=== PATIENT | male | born 1990 | race Caucasian/White ===

== ENCOUNTER 2018-12-03 08:59 | Emergency (ER) | payer OTHER ==
--- NOTE | 2018-12-03 09:36 | ED ---
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 He reports that five days ago, 11/28/18, he has onset of a sensation that he describes as "Feeling my pulse in my throat". Last evening, 12/02/18, he had onset of substernal chest pain. He characterizes pain as a sharpness and a tightness. Pain radiates to throat and is noted to be aggravated by deep breaths. However, he denies SOB. Patient makes note of an episode of dizziness while he was doing squats yesterday, but relates this to not having worked out in a week. He reports no similar prior episodes of present Sx. Patient reports no PMHx and denies FMHx of MIs at his age of 28. PSHx of knee surgery noted. He denies tobacco and substance usage but endorses occasional alcohol usage. On triage, nothing is noted to aggravate/alleviate Sx. Home medications and allergies are reviewed. - History of Current Complaint Chief Complaint: EDChestPainROMI Time Seen by Provider: 12/03/18 09:29 Hx Obtained From: Patient Onset/Duration: Started Days Ago, Still Present Timing: Constant, Lasting Days Chest Pain Location: Discrete at: - sub sternum Chest Pain Radiates: Yes Chest Pain Radiates To:: Other - throat Character: Sharp/Stabbing, Tightness Aggravating Factor(s): Nothing Alleviating Factor(s): Nothing Associated Signs and Symptoms: Positive: Chest Pain, Dizziness. Negative: Shortness of Breath - Allergy/Home Medications Allergies/Adverse Reactions: Allergies Allergy/AdvReac Type Severity Reaction Status Date / Time No Known Allergies Allergy Verified 12/03/18 09:04 Home Medications: Home Medications Loratadine [Claritin] 10 mg PO DAILY PRN 12/03/18 [History Confirmed 12/03/18] raNITIdine HCl [Zantac] 150 mg PO DAILY PRN 12/03/18 [History Confirmed 12/03/18 ] PMH/Surg Hx/FS Hx/Imm Hx Sensory History: Denies: Hx Legally Blind, Hx Deafness Opthamlomology History: Denies: Hx Legally Blind EENT History: Denies: Hx Deafness - Surgical History Surgery Procedure, Year, and Place: knee surgery Infectious Disease History: Reports: Traveled Outside the [place] in Last 30 Days - [place] - Family History Known Family History: Positive: Other - no FMHx of DC at age 28 - Social History Alcohol Use: Occasionally Substance Use Type: Reports: None Smoking Status (MU): Never Smoked Tobacco Review of Systems Positive: Chest Pain - with radiation to throat Negative: Shortness Of Breath Neurological: Other - positive - dizziness All Other Systems Reviewed And Are Negative: Yes Physical Exam - Summary Physical Exam Summary: VITAL SIGNS: Reviewed. GENERAL: Patient is a well-developed and nourished male who is lying comfortable in the stretcher. Patient is not in any acute respiratory distress. HEAD AND FACE: No signs of trauma. No ecchymosis, hematomas or skull depressions. No sinus tenderness. EYES: PERRLA, EOMI x 2, No injected conjunctiva, no nystagmus. EARS: Hearing grossly intact. Ear canals and tympanic membranes are within normal limits. MOUTH: Oropharynx within normal limits. NECK: Supple, trachea is midline, no adenopathy, no JVD, no carotid bruit, no c- spine tenderness, neck with full ROM. CHEST: Symmetric, no tenderness at palpation. LUNGS: Clear to auscultation bilaterally. No wheezing or crackles. CVS: Regular rate and rhythm, S1 and S2 present, no murmurs or gallops appreciated. ABDOMEN: Soft, non-tender. No signs of distention. No rebound, no guarding, and no masses palpated. Bowel sounds are normal. EXTREMITIES: FROM in all major joints, no edema, no cyanosis or clubbing. NEURO: Alert and oriented x 3. No acute neurological deficits. Speech is normal and follows commands. SKIN: Dry and warm. Triage Information Reviewed: Yes Vital Signs On Initial Exam: Initial Vitals Temp Pulse Resp BP Pulse Ox 98.4 F 82 24 143/73 100 12/03/18 09:02 12/03/18 09:02 12/03/18 09:02 12/03/18 09:02 12/03/18 09:02 Vital Signs Reviewed: Yes Diagnostics - Vital Signs Vital Signs Temp Pulse Resp BP Pulse Ox 12/03/18 09:02 98.4 F 82 24 143/73 100 - Laboratory Result Diagrams: 12/03/18 09:35 12/03/18 09:35 Lab Statement: Any lab studies that have been ordered have been reviewed, and results considered in the medical decision making process. - Radiology CXR Radiology Interpretation Completed By: Radiologist Summary of Radiographic Findings: IMPRESSION: No acute cardiopulmonary process by radiograph. THIS REPORT WAS REVIEWED BY DR. DIAZ. - EKG 0902 Cardiac Rate: NL - rate of 80 BPM EKG Rhythm: Sinus Rhythm Summary of EKG Findings: EKG showed NSR with rate of 80 BPM, no STEMI. ED physician has reviewed and interpreted this EKG. 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 He reports that five days ago, , he has onset of a sensation that he describes as "Feeling my pulse in my throat". Last evening, 12/02/18, he had onset of substernal chest pain. He characterizes pain as a sharpness and a tightness. Pain radiates to throat and is noted to be aggravated by deep breaths. However, he denies SOB. Patient makes note of an episode of dizziness while he was doing squats yesterday, but relates this to not having worked out in a week. He reports no similar prior episodes of present Sx. Patient reports no PMHx and denies FMHx of MIs at his age of 28. Blood work without any significant abnormality except for CPK of 965. 2 troponins 4 hours apart were 0.01 and 0.00. After the patient was hydrated with 2 L of IV fluids, the CPK has come down to 854. I believe that the patient doesnt have an acute coronary syndrome. Patient has some rhabdomyolysis from working out. Therefore the patient was given Tylenol for the pain. The patient will be discharged home with follow-up with PCP. Patient is hemodynamically stable alert oriented 3. - Diagnoses Provider Diagnoses: Rhabdomyolysis, Atypical chest pain Discharge ED - Sign-Out/Discharge Documenting (check all that apply): Patient Departure - discharge Patient Received Moderate/Deep Sedation with Procedure: No - Discharge Plan Condition: Stable Disposition: HOME Patient Education Materials: Chest Pain (ED), Rhabdomyolysis (ED) Referrals: [facility] - Brent AMADOR [Primary Care Provider] - 3 Days Additional Instructions: PLEASE RETURN TO THE EMERGENCY DEPARTMENT FOR ANY NEW OR WORSENING SYMPTOMS. PLEASE FOLLOW UP WITH YOUR PRIMARY CARE PHYSICIAN WITHIN THREE DAYS. - Billing Disposition and Condition Condition: STABLE Disposition: Home - Attestation Statements Document Initiated by Scribe: Yes Documenting Scribe: JIAN KEVIN Provider For Whom Paulineibmacy is Documenting (Include Credential): CARYL DIAZ MD Scribe Attestation: IJIAN, scribed for CARYL DIAZ MD on 12/04/18 at 0841. Scribe Documentation Reviewed: Yes Provider Attestation: The documentation as recorded by the JIAN schneider accurately reflects the service I personally performed and the decisions made by me, CARYL DIAZ MD Status of Scribe Document: Viewed
[2018-12-03 09:49] LABS: ABS Eosinophils 0.2 10^3/ul (0-0.6); ABS Lymphocytes 1.4 10^3/ul (1.0-4.8); ABS Monocytes 0.3 10^3/ul (0-0.8); ABS Neutrophils 3.2 10^3/ul (1.5-7.7); Eosinophil % 4.1 %; Hematocrit 47 % (42-52); Hemoglobin 16.4 g/dL (14.0-18.0); Lymphocyte % 27.7 %; Mean Corpuscular HGB Conc 35 g/dL (31-36); Mean Corpuscular Hemoglobin 30 pg (27-31); Mean Corpuscular Volume 86 fL (80-94); Mean Platelet Volume 9.3 fL (7.4-10.4); Nucleated Red Blood Cells % 0.1; Platelet Count 151 10^3/uL (150-450); Red Blood Count 5.48 10^6 /uL (4.18-5.48); Red Cell Distribution Width 13 % (10-15); White Blood Count 5.2 10^3/uL (3.5-10.8)
[2018-12-03 09:59] LABS: Urine Appearance Clear; Urine Bilirubin Negative (Negative); Urine Blood Negative (Negative); Urine Color Straw; Urine Glucose Negative (Negative); Urine Ketones Negative (Negative); Urine Nitrite Negative (Negative); Urine Protein Negative (Negative); Urine Specific Gravity 1.005 (1.010-1.030); Urine Urobilinogen Negative (Negative)
[2018-12-03 10:07] LABS: Albumin 4.6 g/dL (3.2-5.2); Albumin/Globulin Ratio 1.9 (1-3); BUN/Creatinine Ratio 17.9 (8-20); Calcium 9.4 mg/dL (8.6-10.3); EGFR African American 95.2 (>60); EGFR Non-African American 78.6 (>60); Globulin 2.4 g/dL (2-4); Potassium 3.9 mmol/L (3.5-5.0); Total Bilirubin 0.7 mg/dL (0.2-1.0)
[2018-12-03 10:08] LABS: Troponin I 0.01 ng/mL (<0.04)
[2018-12-03 10:11] LABS: CKMB ng/mL 5.5 ng/mL (0.6-6.3)
[2018-12-03] MEDS ORDERED: Acetaminophen TAB* 325 MG PO ONE (10:14)
[2018-12-03] MEDS ORDERED: NS 0.9% 1000 ML** 2,000 ML IV ONE (10:14)
[2018-12-03 10:41] LABS: TSH (Thyroid Stimulating Horm) 1.46 mcIU/mL (0.34-5.60)
[2018-12-03 10:50] LABS: INR 1.07 (0.82-1.09)
[2018-12-03 13:21] VITALS: BP 118/65
== END 2018-12-03 13:20 | disposition home or self-care (01) ==
LOC: ED 08:59
DX: R07.89 Other chest pain (principal); M62.82 Rhabdomyolysis; Z79.899 Other long term (current) drug therapy
CPT/HCPCS: 36415; 71045; 80053; 81003; 82550; 82553; 83880; 84443; 84484; 85025; 85610; 93005; 96360; 96361; 99283; A9270-GY